=== PATIENT | male | born 1980 | race African-American/Black ===

== ENCOUNTER 2018-08-14 21:50 | Emergency (ER) | payer OTHER ==
[~2018-08-14] VITALS: Ht 170.2 cm; Wt 75.0 kg
[2018-08-14] MEDS ORDERED: ULTRAM50 M1 PO (23:21)
[2018-08-14 23:24] VITALS: BP 119/72
== END 2018-08-14 23:35 | disposition home or self-care (01) | DRG 563 ==
LOC: ED 21:50
DX: S93.401A Sprain of unspecified ligament of right ankle, initial encounter (principal); S93.601A Unspecified sprain of right foot, initial encounter; F17.210 Nicotine dependence, cigarettes, uncomplicated; W22.8XXA Striking against or struck by other objects, initial encounter; Y93.89 Activity, other specified; Y92.89 Other specified places as the place of occurrence of the external cause; Y99.0 Civilian activity done for income or pay